=== PATIENT | female | born 1995 | race Hispanic/Latino ===

== ENCOUNTER → 2021-06-08 13:12 | Outpatient (CLI) | payer OTHER, SELFPAY ==
--- NOTE | 2021-06-08 13:15 | DI.US.S_ITS ---
PROCEDURE: US OB >= 14 WEEKS FETUS INDICATIONS: 20 WEEK ANATOMY SCAN. OUTSIDE/PRIOR DATING DATA: Last menstrual period (LMP): 01/19/2021. LMP-based estimated date of delivery (MARISA): 10/26/2021 . First dating scan (date and location): 06/08/2021 . Estimated date of delivery (MARISA) from first dating scan: 10/29/2021 . TECHNIQUE: Real-time scanning was performed of the fetus, with image documentation and biometric measurements. Endovaginal scanning: No COMPARISON: None. FINDINGS: General: A single living intrauterine gestation is present. Presentation: Variable. Placenta: Placental position is anterior , without previa. Amniotic fluid index: 8.8 cm, normal range is 5-24 cm. heart rate: 162 beats per minute. Maternal cervical canal: 4.7 cm long. Normal lower limit is 2.5 cm. biometrics: Biparietal diameter: 19 weeks 2 days Head circumference: 19 weeks 3 days Abdominal circumference: 20 weeks 3 days Femur length: 19 weeks 1 day Estimated gestational age from initial scan: not applicable. Composite gestational age from present scan: 19 weeks 4 days Estimated weight and percentile: 315 g; 35th percentile Measurement variability for biometric dating: +/- 7 days from 14 weeks to 15 weeks 6 days gestation, +/- 10 days from 16 weeks to 21 weeks 6 days gestation, +/- 2 weeks from 22 weeks to 27 weeks 6 days gestation, +/- 3 weeks for 28 weeks gestation or later. weight reference: 4500 g or EFW >90/95% is considered macrosomia or large for gestational age. EFW <10% is small for gestational age. EFW 5% or less is considered intra-uterine growth restriction. Anatomic survey: Neuro: Ventricles are non-dilated at less than 10 mm. Cisterna magna is normal at 3-11 mm. Cerebellum is normal in size and morphology. Nuchal skin fold: Normal at less than 6 mm between 14-21 weeks gestational age. Face: Nose and lips, facial profile are normal. Spine: No evidence for spina bifida. Heart: 4-chambered heart is present, with normal ventricular outflow tracts. Diaphragm: Diaphragm is intact. Stomach: Left-sided stomach is present. Kidneys: No hydronephrosis. Normal is less than 5 mm in 2nd trimester, less than 7 mm in 3rd trimester. Cord: 3-vessel cord has orthotopic insertion. Bladder: Normal in size. Extremities: All 4 extremities identified. IMPRESSION: 1. 19 week 4 day single living IUP corresponding to ultrasound MARISA of 10/29/2021. 2. Normal anatomic survey. Dictated by: Brett Bear RR Interpreted: Akbar Whiting MD on 06/08/2021 at 15:02 Transcribed by: ALLISON on 06/08/2021 at 15:04 Approved by: Akbar Whiting M.D. on 06/08/2021 at 17:22
== END ==
PROVIDERS: Referring Provider Family Medicine; Visit Provider Family Medicine
DX: Z34.82 Encounter for supervision of other normal pregnancy, second trimester (principal)
CPT/HCPCS: 76811

== ENCOUNTER → 2021-06-29 17:29 | Outpatient (CLI) | payer OTHER, SELFPAY ==
[2021-06-29 17:44] LABS: Appearance Urine UA CLEAR; Bilirubin Urine UA NEGATIVE (NEGATIVE); Color Urine UA YELLOW; Glucose Urine UA TRACE g/dL (Negative); Ketones Urine UA NEGATIVE (NEGATIVE); Leukocyte Esterase Urine UA TRACE (NEGATIVE); Nitrite Urine UA NEGATIVE (Negative); Occult Blood Urine UA TRACE-LYSED (Negative); Protein Urine UA NEGATIVE (Negative); Urobilinogen Urine UA 0.2 E.U./dL (0.2)
[2021-06-29 17:47] LABS: pH Urine UA 6.5 (4.5-8.0)
[2021-06-29 17:58] LABS: Bacteria Urine Occasional (0-1); Culture Indicated Urine Specimen Cultured; RBC Urine 1-5/HPF (0-5/HPF); Squamous Epithelial Cell Urine 0-1 /HPF (0-5/HPF); WBC Urine 1-5/HPF (0-5/HPF)
== END ==
PROVIDERS: Referring Provider Family Medicine; Visit Provider Family Medicine
DX: R30.0 Dysuria (principal)
CPT/HCPCS: 81001; 87086

== ENCOUNTER → 2021-07-31 10:57 | Outpatient (CLI) | payer OTHER, SELFPAY ==
[2021-07-31 12:50] LABS: GTT (PREG) 1 Hour PP 50gm Dose 99 mg/dL (76-139)
== END ==
PROVIDERS: Referring Provider Family Medicine; Visit Provider Family Medicine
DX: Z34.90 Encounter for supervision of normal pregnancy, unspecified, unspecified trimester (principal)
CPT/HCPCS: 36415; 82950

== ENCOUNTER → 2021-09-12 16:27 | Outpatient (CLI) | payer OTHER, SELFPAY ==
[2021-09-12 17:42] LABS: Add Manual Diff / Slide Review NO; Basophils Absolute Auto 100 /uL (0-100); Basophils Percent Auto 0.4 % (0-2); Eosinophils Absolute Auto 200 /uL (0-450); Eosinophils Percent Auto 1.4 % (2-4); Hematocrit 34.5 % (36-46); Hemoglobin 11.6 g/dL (12.0-16.0); Lymphocytes Absolute Auto 2000 /uL (1100-4500); Lymphocytes Percent Auto 15.8 % (25-40); Mean Corpuscular HGB Conc 33.5 % (30-36); Mean Corpuscular Hemoglobin 29.2 PG (26-34); Mean Corpuscular Volume 87.1 fL (80-100); Monocytes Absolute Auto 800 /uL (0-900); Monocytes Percent Auto 6.3 % (3-14); Neutrophils Absolute Auto 9800 /uL (1500-7000); Neutrophils Percent Auto 76.1 % (50-75); Platelet Count 309 X10^3/uL (150-400); Red Blood Cell Count 3.96 X10^6/uL (4.0-5.2); White Blood Cell Count 12.8 X10^3/uL (4.5-11.0)
== END ==
PROVIDERS: Referring Provider Family Medicine; Visit Provider Family Medicine
DX: Z34.83 Encounter for supervision of other normal pregnancy, third trimester (principal); Z3A.33 33 weeks gestation of pregnancy
CPT/HCPCS: 36415; 85025

== ENCOUNTER → 2021-09-20 11:21 | Outpatient (CLI) | payer OTHER, SELFPAY ==
[2021-09-20 13:35] LABS: COVID19 -Nasal RAPID POSITIVE (Negative)
== END ==
PROVIDERS: Referring Provider Nurse Practitioner Family; Visit Provider Nurse Practitioner Family
DX: U07.1 COVID-19 (principal); Z20.822 Contact with and (suspected) exposure to COVID-19; R05.9 Cough, unspecified
CPT/HCPCS: 87635

== ENCOUNTER → 2021-09-25 13:55 | Outpatient (CLI) | payer OTHER, SELFPAY ==
[2021-09-25 14:44] LABS: Alanine Aminotransferase 75 IU/L (<35); Albumin 3.3 g/dL (3.5-5.0); Albumin Globulin Ratio 0.9 (1.0-2.8); Alkaline Phosphatase 181 U/L (38-126); Aspartate Aminotransferase 57 IU/L (14-36); Bilirubin Total 1.1 mg/dL (0.2-1.3); Bilirubin Unconjugated 0.7 mg/dL (0.0-1.1); Globulin 3.5 g/dL (1.7-4.1); HEMOLYSIS < 15 (0-50); Total Protein 6.8 g/dL (6.3-8.2)
[2021-09-26 08:13] LABS: Bile Acids 100.6 umol/L (0.0-10.0)
== END ==
PROVIDERS: Family Medicine; Referring Provider Family Medicine; Visit Provider Family Medicine
DX: L50.8 Other urticaria (principal); Z3A.30 30 weeks gestation of pregnancy
CPT/HCPCS: 36415; 80076; 82239

== ENCOUNTER → 2021-09-26 15:04 | Outpatient (CLI) | payer OTHER, SELFPAY ==
[2021-09-26 16:00] LABS: COVID19 -Nasal RAPID POSITIVE (Negative)
[2021-09-27 13:01] LABS: Strep Grp B PCR POS for Grp B Strep
== END ==
PROVIDERS: Referring Provider Family Medicine; Visit Provider Family Medicine
DX: O98.513 Other viral diseases complicating pregnancy, third trimester (principal); U07.1 COVID-19; Z3A.35 35 weeks gestation of pregnancy
CPT/HCPCS: 87635; 87653

== ENCOUNTER 2021-09-26 15:19 | Observation (INO) | payer OTHER, SELFPAY ==
[2021-09-26] MEDS: BETAMETHASONE 30 MG/5 ML MDV 12 MG IM (15:43)
== END 2021-09-26 15:50 | disposition home or self-care (01) ==
PROVIDERS: Admitting Provider Family Medicine; Referring Provider Family Medicine; Visit Provider Family Medicine
DX: O26.893 Other specified pregnancy related conditions, third trimester (principal); R74.02 Elevation of levels of lactic acid dehydrogenase [LDH]; Z3A.35 35 weeks gestation of pregnancy
CPT/HCPCS: 96372; G0378; G0379; J0702

== ENCOUNTER 2021-09-26 19:02 | Inpatient (IN) | payer OTHER, SELFPAY ==
[2021-09-26 21:00] VITALS: BP 116/76
[2021-09-26 21:11] LABS: Add Manual Diff / Slide Review NO; Basophils Absolute Auto 0 /uL (0-100); Basophils Percent Auto 0.2 % (0-2); Eosinophils Absolute Auto 0 /uL (0-450); Hematocrit 35.1 % (36-46); Hemoglobin 11.9 g/dL (12.0-16.0); Lymphocytes Absolute Auto 900 /uL (1100-4500); Lymphocytes Percent Auto 7.7 % (25-40); Mean Corpuscular HGB Conc 33.8 % (30-36); Mean Corpuscular Hemoglobin 29.4 PG (26-34); Monocytes Absolute Auto 100 /uL (0-900); Monocytes Percent Auto 1.2 % (3-14); Neutrophils Absolute Auto 11100 /uL (1500-7000); Neutrophils Percent Auto 90.9 % (50-75); Platelet Count 306 X10^3/uL (150-400); Red Blood Cell Count 4.03 X10^6/uL (4.0-5.2); Red Cell Distribution Width 12.9 % (11.6-14.8); White Blood Cell Count 12.2 X10^3/uL (4.5-11.0)
[2021-09-26] MEDS: miSOPROStoL 25 MCG TABLET 50 MCG PO (21:37)
[2021-09-27] MEDS: miSOPROStoL 25 MCG TABLET 50 MCG PO (03:59)
--- NOTE | 2021-09-27 08:36 | DI.US.S_ITS ---
PROCEDURE: US OB LIMITED INDICATIONS: growth, IOL for cholestasis OUTSIDE/PRIOR DATING DATA: Last menstrual period (LMP): 01/19/21. LMP-based estimated date of delivery (MARISA): 10/26/21. First dating scan (date and location): 06/08/21. Estimated date of delivery (MARISA) from first dating scan: 10/29/21. The calculations are made using the ultrasound MARISA of 10/29/21. TECHNIQUE: Real-time scanning was performed of the fetus, with image documentation. Endovaginal scanning: Not performed COMPARISON: None. FINDINGS: A single living intrauterine gestation is present. Presentation: Vertex. Placenta: Placental position is anterior, without previa. Amniotic fluid index: 17.4 cm, normal range is 5-24 cm. Single deepest vertical pocket is 6.0 cm. heart rate: 137 beats per minute. Maternal cervical canal: Not seen Estimated gestational age by initial ultrasound 35 weeks three days Biparietal diameter 8.6 cm, 34 weeks, four days Head circumference 31.4 cm, 35 weeks, two days Abdominal circumference 32.1 cm, 36 weeks, 0 days Femur length 7.0 cm, 36 weeks, one day Composite gestational age 35 weeks, four days Estimated weight 2773 g, 60th percentile IMPRESSION: 1. Single living intrauterine . 2. Appropriate growth compared to the prior study. 3. Normal amniotic fluid volume. Dictated by: Li Campa M.D. on 09/27/2021 at 10:59 Approved by: Li Campa M.D. on 09/27/2021 at 11:04
--- NOTE | 2021-09-27 10:51 | P.HPOB_ITS ---
OB HPI Date/Time Date of admission: 09/27/21 Date Patient Seen: 09/27/21 Time Patient Seen: 07:30 History of Present Condition Chief complaint: observation of labor MARISA Calculator Estimated Delivery Date Method Current WG Current Estimate 10/26/21 Manual 35w 6d Final MARISA - BENJAMIN Other Estimates 10/26/21 LMP (Certain) 35w 6d 10/26/21 Ultrasound #1 35w 6d 10/24/21 Ultrasound #2 36w 1d Estimated Gestational Age (weeks): 35w6d : 2 Para: 1 Narrative: Pt is a 26yo at 35w6d here for IOL for cholestasis of . She is feeling her baby move regularly. No LOF, vaginal bleeding, or contractions prior to presentation. Her was uncomplicated until the past week. She was diagnosed with COVID on 09/20, with cold-like symptoms. Her symptoms have since resolved. The pt then developed itching on her abdomen and feet. CMP and bile acids were drawn, and she was shown to have slightly elevated liver enzymes and bile acids of 100.6. The case was discussed with MFM yesterday, and they recommended delivery no later than 36 weeks. care: good care, initiated at week # (10) and pounds weight gain (32) Dating criteria OB: LMP confirmed by 1st trimester US Ultrasounds: normal 1st trimester US and normal mid trimester US Obstetrical complications: other (cholestasis ) Medical complications OB: none Indications Indication for induction OB: other (cholestasis of ) Preadmission Labs Last OB Lab Results: Blood Type O Positive 09/26/21 21:08 09/26/21 Antibody Screen Negative 09/26/21 21:08 09/26/21 Hematocrit 35.1 % (36-46) L 09/26/21 21:08 09/26/21 Hemoglobin 11.9 g/dL (12.0-16.0) L 09/26/21 21:08 09/26/21 Glucose 1 Hour 99 mg/dL (76-139) 07/31/21 12:17 07/31/21 Group B Streptococcus (PCR) Pos for grp b strep H 09/26/21 15:36 09/26/21 -: Urine: negative External Labs -: HBsAG: negative, HIV: negative, RPR/VDLR: negative, Chlamydia screen: negative, Gonorrhea screen: negative, GBS status: positive and Urine: negative -: Rubella: immune and Varicella: immune Prior (ies) Past Pregnancies Del. Date GA/Weeks Labor Lgth Wt Sex Route Outcome Anesthesia Place Delv Breastfeed Preg Comp Name 03/09/17 40.4 16 7 lb 8 oz Male vaginal live - full ter m epidural [place], [place] BF 18 mos; latch issues none Robert Delivery Date: 03/09/17 Last Updated by: Yahaira Modi R.N. Intact perineum, no complications. Evaluation Evaluation Baseline heart rate: 140 Variability: Moderate (11-25) monitor accelerations: Present Monitor Decelerations: Absent Contraction Frequency (minutes): 3 Status: Category l Dilation (cm): 2.5 Effacement (%): 80 Dilation: 1-2 cm Effacement: >/=80% station: -1 Position of cervix: mid Consistency: soft Alanis score: 9 PFSH Medical History (Updated 09/26/21 @ 21:57 by Suyapa Kan MD) Anxiety (~2009) Healthy female adult Family History (Updated 05/18/21 @ 10:35 by Yahaira Modi RN) Mother No problems noted. Father Anxiety Grandmother Diabetes mellitus Grandfather Myocardial infarction Grandmother Diabetes mellitus Grandfather No problems noted. Brother Anxiety Testicular cancer Sister Anxiety Social History marital status: number of children: 1 household members: spouse and children lives independently: Yes caregiver/support person: No housing: condominium pets and animals: No education level: college (Some college: pursuing criminal justice/psychologist) occupational status: unemployed current occupational exposures/hazards: No special bekah needs: No seatbelt use: always do you feel safe at home: Yes in current or past relationships, have you been: threatened Smoking Status: Never smoker second hand exposure: No alcohol intake: former (Pre-: Rarely, once every few months. ) substance use type: does not use during the past year weight has: remained stable well-balanced diet: about half the time (Meat has been making her nauseated, hard to get enough protein. ) daily servings fruits/ve or more times/day caffeine: Yes (None first trimester, now just occasionally. Aware of 200mg limit. ) Type(s) of exercise: walking frequency: 3-4 times per week duration: 30-45 minutes/day Meds Home Medications and Allergies Home Medications Medication Instructions Recorded Confirmed Type prenat.vits,deborah,[id number] 1 tab PO DAILY 05/18/21 09/26/21 History metronidazole 500 mg tablet 500 mg PO BID #14 tab 07/03/21 09/26/21 Rx Allergies Allergy/AdvReac Type Severity Reaction Status Date / Time No Known Drug Allergies Allergy Verified 12/09/18 16:17 OB Exam Narrative Exam Narrative: Gen: NAD, sitting comfortably in bed, appears well CV: RRR, no murmurs Resp: clear to auscultation bilaterally Abd: soft, nontender, gravid Ext: no edema Skin: no rash Objective Labs Result Diagrams: 09/26/21 21:08 Labs: Laboratory Results - last 24 hr 09/26/21 09/26/21 21:08 21:08 WBC 12.2 H RBC 4.03 Hgb 11.9 L Hct 35.1 L MCV 87.0 MCH 29.4 MCHC 33.8 RDW 12.9 Plt Count 306 Neut % (Auto) 90.9 H Lymph % (Auto) 7.7 L [place] % (Auto) 1.2 L Eos % (Auto) 0.0 L Baso % (Auto) 0.2 Neut # (Auto) 90305 H Lymph # (Auto) 900 L [place] # (Auto) 100 Eos # (Auto) 0 Baso # (Auto) 0 Blood Type O Positive Antibody Screen Negative Assessment and Plan Assessment and Plan Assessment and Plan narrative: 26yo at 35w6d here for IOL due to cholestasis or . Bile acids > 100 with elevated liver enzymes. After discussion with MFM, recommendation to induce no later than 36 weeks. Received dose of Betamethasone yesterday, will repeat today due to late status. otherwise uncomplicated. She did test positive for COVID on 09/20, and remained positive yesterday. Rh positive, GBS positive. Received 2 doses of cytotec overnight, now with mild intermittent contractions. Alanis score currently 9. - Expectant management, anticipate - GBS positive, penicillin for GBS prophylaxis initiated - Start pitocin when able, titrate as tolerated. IOL currently on hold due to issues with the equipment sterilization. - Continuous monitoring due to cholestasis - Epidural for pain control when desired - Plan on AROM once GBS prophylaxis adequate - Airborne precautions with patient care
[2021-09-27] MEDS: PENICILLIN G POTASSIUM 5,000,000 UNIT in DEXTROSE 5% IN WATER 250 ML IV (11:07)
[2021-09-27] MEDS: OXYTOCIN PREMIX 30 UNIT/500 ML PLAST..BAG IV (13:29)
[2021-09-27] MEDS: BETAMETHASONE 30 MG/5 ML MDV 12 MG IM (15:16)
[2021-09-27] MEDS: PENICILLIN G POTASSIUM 3,000,000 UNIT/50 ML FROZ.PIGGY 100 UNIT IV ×2 (16:13→20:07)
--- NOTE | 2021-09-27 19:06 | PM.AN.REGBLK ---
Regional Block Pre-procedure Procedure: Continuous Lumbar Epidural for L&D Attending OB provider: Suyapa Kan PMH/ROS narrative: Induction for cholestasis of at 35WGA. (+) COVID - congestion and cough, 10 days from symptom onset, 8 days from (+) test. Hx: No personal or family history of anesthesia problems. PSH/Anesthesia history narrative: previous epidural without issue Exam narrative: RRR CTAB ASA Class: III Labs: Hct 35.1 % (36-46) L 09/26/21 21:08 Plt Count 306 X10^3/uL (150-400) 09/26/21 21:08 Medications: Current Medications Generic Name Dose Route Start Last Admin Trade Name Freq PRN Reason Stop Dose Admin Calcium Carbonate 1,000 mg 09/26/21 19:18 Calcium Carbonate 500 Mg Tab PO Q2HR PRN Dyspepsia Carboprost Tromethamine 250 mcg 09/26/21 19:18 Carboprost 250 Mcg/Ml Ampul IM Q90M PRN Bleeding Fentanyl 50 mcg 09/26/21 19:18 Fentanyl 100 Mcg/2 Ml Inj IV Q1H PRN Pain, Moderate (4-6) Tranexamic Acid 1,000 mg/ 100 mls @ 200 mls/hr 09/26/21 19:18 Sodium Chloride IV NOW PRN Bleeding Penicillin G Potassium 3,000,000 unit in 50 mls @ 100 mls/hr 09/26/21 23:30 09/27/21 16:13 Penicillin G Potassium IV 100 mls/hr Q4H PEDRO Administration Lactated Ringer's 1,000 mls @ 100 mls/hr 09/26/21 19:30 Lactated Ringers IV CONT PEDRO Oxytocin/Lactated Ringer's 30 unit in 500 mls @ 200 mls/hr 09/26/21 19:18 Oxytocin Premix IV CONT PRN Bleeding Protocol Oxytocin/Lactated Ringer's 30 unit in 500 mls @ 3 mls/hr 09/26/21 19:30 09/27/21 13:29 Oxytocin Premix IV 3 milliunit/min TITRATE PEDRO 3 mls/hr Administration Protocol 3 MILLIUNIT/MIN Methylergonovine Maleate 0.2 mg 09/26/21 19:18 Methylergonovine 0.2 Mg/Ml Vial IM NOW PRN Bleeding Methylergonovine Maleate 0.2 mg 09/26/21 19:18 Methylergonovine 0.2 Mg Tablet PO Q6HR PRN Heavy Bleeding Misoprostol 1,000 mcg 09/26/21 19:18 Misoprostol 200 Mcg Tablet RI NOW PRN Bleeding Misoprostol 400 mcg 09/26/21 19:18 Misoprostol 200 Mcg Tablet SL NOW PRN Bleeding Misoprostol 800 mcg 09/26/21 19:18 Misoprostol 200 Mcg Tablet RI NOW PRN Bleeding Misoprostol 50 mcg 09/26/21 21:00 09/27/21 03:59 Misoprostol 25 Mcg Tablet PO 50 mcg QID PEDRO Administration Naloxone HCl 0.2 mg 09/26/21 19:18 Naloxone 0.4 Mg/Ml Vial IV Q2MIN PRN Opiate Reversal Ondansetron HCl 4 mg 09/26/21 19:18 Ondansetron 4 Mg/2 Ml Inj IV Q4HR PRN Nausea And Vomiting Oxytocin 10 unit 09/26/21 19:18 Oxytocin 10 Unit/Ml Vial IM NOW PRN Bleeding Allergies: Allergies Allergy/AdvReac Type Severity Reaction Status Date / Time No Known Drug Allergies Allergy Verified 12/09/18 16:17 Procedure Insertion date: 09/27/21 Insertion time: 18:50 Prep/Local: betadine x3 (chloroprep) and 1% lidocaine Interspace: L3-4 Patient position: sitting Needle: 18 gauge Monicatead (with 27G pencil point needle-through needle for IT dose) Loss of resistance with: saline (with air bubble) Catheter placed at SKIN (cm): 12 Insertion: Yes CSF, No Blood, No Paresthesia with insertion, No Paresthesia with injection and No Test dose reaction Initial Medications TEST DOSE time: 18:50 TEST DOSE: 1.5% lidocaine with epinephrine 1:200k (mL): 5 (3mL initial test dose, 2mL as part of first bolus) BOLUS DOSE time: 18:51 BOLUS DOSE (mL): 2 BOLUS DOSE med: other (10mcg fentanyl intrathecally, 90mcg fentanyl via epidural catheter) Infusion INFUSION: 0.0625% bupivacaine and with fentanyl 2 mcg/mL Initial rate (mL/hr): 12 (with bolus of 5mL Q15min lockout) Post-procedure Anesthesia time START: 18:24 Anesthesia time END: 20:54 Post-procedure Anesthesia Assessment: No Anesthesia complications
--- NOTE | 2021-09-27 21:22 | P.PCNOB_ITS ---
Events: Other (cholestasis of ) Labor & Delivery Delivery date: 09/27/21 Intrapartal Events: None Cervical ripening method: per misoprostal protocol Induction method: per pitocin protocol Delivery augmentation: rupture of membranes Delivery monitor: external FHT Route of delivery: Episiotomy description: None L&D Laceration Description: Perineal - 1st Degree Delivery repair: chromic (3-O) Estimated blood loss (mL): 100 Anesthesia Type: Epidural Complications: None Narrative: PROCEDURE: at 35w6d presented for IOL due to cholestasis of and was admitted to Labor and Delivery. The pt was betamethasone complete at []. She received cytotec x2 for induction, and was then started on pitocin. The patient progressed through the 1st stage over 8 hours. Pain was controlled with an epidural. The pt had SROM with clear fluid present. The patient progressed through the 2nd stage over 7 minutes and delivered a viable female with APGARs 8/9 at 20:54 via without complications. Nuchal cord x 1 was reduced after delivery. The baby cried spontaneously immediately after delivery. The cord was clamped and cut after 5 minutes. The perineum and vagina were inspected with 1st degree laceration repaired with 3-O Chromic. PREPROCEDURE DIAGNOSIS: Intrauterine at 35w6d Cholestasis of GBS positive RH positive POSTPROCEDURE DIAGNOSIS: Intrauterine at 35w6d, delivered Same as preprocedure [place] Baby 1: Infant gender: Female Presentation: vertex Position: Right Occiput Anterior Placenta delivery description: Spontaneous Cord Vessel Description: 3 Vessels and Nuchal Cord (x1) score (1 min): 8 score (5 min): 9 weight: 5 lb 12.629 oz Plan for aftercare: Routine care
[2021-09-27] MEDS: ACETAMINOPHEN 325 MG TABLET 650 MG PO (23:33)
[2021-09-27] MEDS: IBUPROFEN 600 MG TABLET PO (23:33)
[2021-09-27] MEDS: LANOLIN OINT 7 GM 1 APPLIC TOP (23:34)
[2021-09-28] MEDS: ACETAMINOPHEN 325 MG TABLET 650 MG PO (06:55)
[2021-09-28] MEDS: IBUPROFEN 600 MG TABLET PO (06:55)
[2021-09-28 10:19] LABS: Alanine Aminotransferase 222 IU/L (<35); Albumin 3.1 g/dL (3.5-5.0); Albumin Globulin Ratio 0.9 (1.0-2.8); Alkaline Phosphatase 154 U/L (38-126); Aspartate Aminotransferase 151 IU/L (14-36); BUN Creatinine Ratio 12.7 (6-22); Blood Urea Nitrogen 7 mg/dL (7-17); Carbon Dioxide 24 mmol/L (22-32); Chloride 105 mmol/L (98-107); Estimated Glomerular Filt Rate > 60.0 mL/min (>60); Globulin 3.3 g/dL (1.7-4.1); Glucose 129 mg/dL (70-100); HEMOLYSIS < 15 (0-50); Potassium 3.8 mmol/L (3.4-5.1); Sodium 135 mmol/L (137-145); Total Protein 6.4 g/dL (6.3-8.2)
--- NOTE | 2021-09-28 10:37 | PM.OBPN.1 ---
Subjective - OB Subjective Interval history: Pt reports feeling well. She is with good latch, but does have some nipple discomfort. Her pain is well controlled, with only mild cramping. Her lochia is decreasing appropriately. She has passed flatus. Exam Narrative Exam Narrative: Gen: NAD, sitting comfortably in bed, appears well CV: RRR, no murmurs Resp: clear to auscultation bilaterally Abd: soft, appropriately tender, fundus firm and below the umbilicus, nondistended Ext: no edema Objective Labs Result Diagrams: 09/26/21 21:08 09/28/21 09:40 Labs: Laboratory Results - last 24 hr 09/28/21 09:40 Sodium 135 L Potassium 3.8 Chloride 105 Carbon Dioxide 24 BUN 7 Creatinine 0.55 Estimated GFR > 60.0 BUN/Creatinine Ratio 12.7 Glucose 129 H Calcium 9.0 Total Bilirubin 1.0 AST 151 H ALT 222 H Alkaline Phosphatase 154 H Total Protein 6.4 Albumin 3.1 L Globulin 3.3 Albumin/Globulin Ratio 0.9 L Assessment & Plan Plan Comments: 26yo PPD #1 s/p without complications after IOL for cholestasis of . Pt recovering well. Liver enzymes are up from earlier in the week, will continue to trend. Pt is COVID positive. - Normal care - Trend liver enzymes - support - Airborne precautions Time Spent With Patient Time: Total time spent is greater than 50% in coordination of care (as documented) at patient's floor/unit and/or counseling patient: Time with patient: less than 15 minutes
[2021-09-29] MEDS: ACETAMINOPHEN 325 MG TABLET 650 MG PO (02:11)
[2021-09-29] MEDS: IBUPROFEN 600 MG TABLET PO ×2 (02:12→12:20)
[2021-09-29 07:08] LABS: Alanine Aminotransferase 351 IU/L (<35); Albumin 3.1 g/dL (3.5-5.0); Alkaline Phosphatase 135 U/L (38-126); Aspartate Aminotransferase 228 IU/L (14-36); BUN Creatinine Ratio 23.1 (6-22); Bilirubin Total 0.5 mg/dL (0.2-1.3); Blood Urea Nitrogen 12 mg/dL (7-17); Calcium 8.8 mg/dL (8.4-10.2); Carbon Dioxide 27 mmol/L (22-32); Chloride 105 mmol/L (98-107); Estimated Glomerular Filt Rate > 60.0 mL/min (>60); Globulin 3.1 g/dL (1.7-4.1); Glucose 86 mg/dL (70-100); HEMOLYSIS < 15 (0-50); Potassium 3.7 mmol/L (3.4-5.1); Sodium 135 mmol/L (137-145); Total Protein 6.2 g/dL (6.3-8.2)
[2021-09-29] MEDS: PRENATAL VIT,CALC/IRON/FOLIC 1 TABLET 1 TAB PO (09:59)
[2021-09-29] MEDS: DOCUSATE 100 MG CAPSULE PO (09:59)
--- NOTE | 2021-09-29 10:26 | P.DS_ITS ---
Discharge Providers Provider Date of admission: 09/26/21 19:02 Discharge Date: 09/29/21 Primary care physician: Doctor Tamra MD Consults: 09/28/21 21:23 Consult to Assistant Kitchen Manager Routine Comment: Discharge provider: Suyapa Kan MD Summary Hospital Course Date Patient Seen: 09/29/21 Time Patient Seen: 10:26 Diagnoses: Intrauterine at 35w6d Cholestasis of GBS positive RH positive Hospital Course: The patient presented for induction of labor due to cholestasis of . She received Cytotec for induction followed by Pitocin. She received adequate prophylaxis for GBS with penicillin. She had ask Trauma production of clear fluid. She progressed to complete and has had a spontaneous vaginal delivery of a viable baby girl on 09/27/2021. A first-degree perineal laceration was then repaired. There were no complications with delivery. , there also no complications. At the time of discharge she was voiding, ambulating, and passing flatus without difficulty. She was breast-feeding with good latch. Her pain was well controlled. Her lochia was decreasing appropriately. We did trend her liver enzymes showed elevation prior to delivery and they were noted to be going up slightly. We recommend no Tylenol at home and will continue to trend these with a repeat CMP next week. The patient her blood pressures remained normal, and she had no other evidence of HELLP on labs. She will follow-up in 6 weeks for her check. She is undecided regarding contraception. Peripartum Data Delivery Method: Natural Vaginal Laceration Description: Perineal - 1st Degree Episiotomy description: None Procedures: Spontaneous vaginal delivery complications: none 1: Gender: Female Disposition of : home Discharge Diagnosis (1) Cholestasis during in third trimester: Status: Acute (2) Spontaneous vaginal delivery: Status: Acute Status at Discharge Cognitive/behavioral status at discharge: oriented Functional status at discharge: independent ambulation Overall status at discharge: patient is progressing back to baseline Time Spent with Patient Time attestation: Total time spent providing and/or coordinating discharge services: Objective Labs Result Diagrams: 09/29/21 08:40 09/29/21 06:40 Labs: Laboratory Results - last 24 hr 09/29/21 06:40 Sodium 135 L Potassium 3.7 Chloride 105 Carbon Dioxide 27 BUN 12 Creatinine 0.52 Estimated GFR > 60.0 BUN/Creatinine Ratio 23.1 H Glucose 86 Calcium 8.8 Total Bilirubin 0.5 AST 228 H ALT 351 H Alkaline Phosphatase 135 H Total Protein 6.2 L Albumin 3.1 L Globulin 3.1 Albumin/Globulin Ratio 1.0 Exam Narrative Exam Narrative: Gen: NAD, sitting comfortably in bed, appears well CV: RRR, no murmurs Resp: clear to auscultation bilaterally Abd: soft, appropriately tender, fundus firm and below the umbilicus, nondistended Ext: no edema Discharge Plan Discharge Plan Patient Disposition: Home Discharge orders & Medications Prescriptions: New docusate sodium 100 mg Capsule 100 mg PO DAILY Qty: 30 0RF ibuprofen 600 mg Tablet 600 mg PO Q6HR PRN (Reason: Pain, Mild (1-3)) Qty: 30 0RF Continued prenat.vits,deborah,[id number] Tablet 1 tab PO DAILY 0RF Discontinued metronidazole 500 mg tablet 500 mg PO BID Qty: 14 0RF Follow up/Referrals: Doctor Barboza MD [Primary Care Provider] - Suyapa Kan MD [Physician] - 6 Weeks Diet/Activity/Treatments Diet: Diet as Tolerated and Regular Skin/Wound/Dressing Care Report to your healthcare provider any signs of infection, such as:: chills, fever, increased pain and unusual drainage Visit Report/Discharge Packet Instructions: DI for Labor and Delivery, Vaginal Visit Report Forms: Patient Portal/API, Stroke Signs & Symptoms Discharge Data Primary Care Provider: Doctor Tamra
[2021-09-29 11:16] LABS: Add Manual Diff / Slide Review NO; Basophils Absolute Auto 100 /uL (0-100); Basophils Percent Auto 0.7 % (0-2); Eosinophils Absolute Auto 0 /uL (0-450); Eosinophils Percent Auto 0.2 % (2-4); Hematocrit 28.9 % (36-46); Hemoglobin 9.5 g/dL (12.0-16.0); Lymphocytes Absolute Auto 2400 /uL (1100-4500); Mean Corpuscular HGB Conc 32.8 % (30-36); Mean Corpuscular Hemoglobin 29.1 PG (26-34); Mean Corpuscular Volume 88.9 fL (80-100); Monocytes Absolute Auto 900 /uL (0-900); Monocytes Percent Auto 7.9 % (3-14); Neutrophils Absolute Auto 7900 /uL (1500-7000); Neutrophils Percent Auto 70.2 % (50-75); Platelet Count 280 X10^3/uL (150-400); Red Blood Cell Count 3.25 X10^6/uL (4.0-5.2); Red Cell Distribution Width 13.5 % (11.6-14.8); White Blood Cell Count 11.3 X10^3/uL (4.5-11.0)
[2021-09-29] MEDS: DERMOPLAST SPRAY 20% 60 ML 1 SPRAY TOP (12:20)
[2021-09-29 16:15] VITALS: BP 105/62; PULSE 65; RESP 18; TEMP 36.6
== END 2021-09-29 17:00 | disposition home or self-care (01) | DRG 805 ==
PROVIDERS: Admitting Provider Family Medicine; Referring Provider Family Medicine; Visit Provider Family Medicine
DX: O26.62 Liver and biliary tract disorders in childbirth (principal); K83.1 Obstruction of bile duct; Z37.0 Single live birth; U07.1 COVID-19; O98.52 Other viral diseases complicating childbirth; O98.513 Other viral diseases complicating pregnancy, third trimester; Z3A.35 35 weeks gestation of pregnancy; O99.824 Streptococcus B carrier state complicating childbirth; O69.81X0 Labor and delivery complicated by cord around neck, without compression, not applicable or unspecified; O70.0 First degree perineal laceration during delivery
CPT/HCPCS: 01967; 36415; 59050; 59200; 59400; 76815; 80053; 85025; 86850; 86900; 86901; 87635; 87653; 96372; G0378; G0379; J0702; J2540; J2590; J3010

== ENCOUNTER → 2021-09-30 11:58 | Outpatient (CLI) | payer OTHER, SELFPAY ==
[2021-09-30 13:31] LABS: Alanine Aminotransferase 636 IU/L (<35); Albumin 3.4 g/dL (3.5-5.0); Alkaline Phosphatase 155 U/L (38-126); Aspartate Aminotransferase 371 IU/L (14-36); Bilirubin Total 0.8 mg/dL (0.2-1.3); Blood Urea Nitrogen 12 mg/dL (7-17); Calcium 9.4 mg/dL (8.4-10.2); Carbon Dioxide 28 mmol/L (22-32); Chloride 103 mmol/L (98-107); Estimated Glomerular Filt Rate > 60.0 mL/min (>60); Globulin 3.3 g/dL (1.7-4.1); Glucose 84 mg/dL (70-100); HEMOLYSIS < 15 (0-50); Potassium 4.3 mmol/L (3.4-5.1); Sodium 136 mmol/L (137-145); Total Protein 6.7 g/dL (6.3-8.2)
== END ==
PROVIDERS: Referring Provider Family Medicine; Visit Provider Family Medicine
DX: K83.1 Obstruction of bile duct (principal); O26.613 Liver and biliary tract disorders in pregnancy, third trimester
CPT/HCPCS: 36415; 80053

== ENCOUNTER → 2021-10-06 15:27 | Outpatient (CLI) | payer OTHER, SELFPAY ==
[2021-10-06 17:52] LABS: Alanine Aminotransferase 175 IU/L (<35); Alkaline Phosphatase 136 U/L (38-126); Aspartate Aminotransferase 34 IU/L (14-36); Bilirubin Total 0.6 mg/dL (0.2-1.3); Bilirubin Unconjugated 0.4 mg/dL (0.0-1.1); Globulin 3.9 g/dL (1.7-4.1); HEMOLYSIS < 15 (0-50); Total Protein 7.9 g/dL (6.3-8.2)
[2021-10-07 06:36] LABS: HBsAg Screen Negative (Negative); Hepatitis A Antibody IgM Negative (Negative); Hepatitis B Core Antibody IgM Negative (Negative); Hepatitis C Antibody <0.1 s/co ratio (0.0-0.9)
== END ==
PROVIDERS: Referring Provider Family Medicine; Visit Provider Family Medicine
DX: R79.89 Other specified abnormal findings of blood chemistry (principal)
CPT/HCPCS: 36415; 80074; 80076

== ENCOUNTER → 2021-10-19 09:47 | Outpatient (CLI) | payer OTHER, SELFPAY ==
[2021-10-19 10:46] LABS: Alanine Aminotransferase 21 IU/L (<35); Albumin 4.1 g/dL (3.5-5.0); Albumin Globulin Ratio 1.1 (1.0-2.8); Alkaline Phosphatase 104 U/L (38-126); Aspartate Aminotransferase 27 IU/L (14-36); Bilirubin Total 0.7 mg/dL (0.2-1.3); Bilirubin Unconjugated 0.7 mg/dL (0.0-1.1); Globulin 3.6 g/dL (1.7-4.1); HEMOLYSIS < 15 (0-50); Total Protein 7.7 g/dL (6.3-8.2)
== END ==
PROVIDERS: Referring Provider Family Medicine; Visit Provider Family Medicine
DX: R79.89 Other specified abnormal findings of blood chemistry (principal)
CPT/HCPCS: 36415; 80076

== ENCOUNTER → 2023-01-21 11:26 | Outpatient (CLI) | payer OTHER, SELFPAY ==
[2023-01-21 11:57] LABS: Add Manual Diff / Slide Review NO; Basophils Absolute Auto 100 /uL (0-100); Basophils Percent Auto 1.4 % (0-2); Eosinophils Absolute Auto 300 /uL (0-450); Eosinophils Percent Auto 5.7 % (2-4); Hematocrit 42.3 % (36-46); Hemoglobin 14.2 g/dL (12.0-16.0); Lymphocytes Absolute Auto 2200 /uL (1100-4500); Lymphocytes Percent Auto 37.7 % (25-40); Mean Corpuscular HGB Conc 33.6 % (30-36); Mean Corpuscular Hemoglobin 30.3 PG (26-34); Mean Corpuscular Volume 90.2 fL (80-100); Monocytes Absolute Auto 300 /uL (0-900); Monocytes Percent Auto 5.8 % (3-14); Neutrophils Absolute Auto 2900 /uL (1500-7000); Neutrophils Percent Auto 49.4 % (50-75); Platelet Count 228 X10^3/uL (150-400); Red Blood Cell Count 4.69 X10^6/uL (4.0-5.2); Red Cell Distribution Width 12.8 % (11.6-14.8); White Blood Cell Count 5.8 X10^3/uL (4.5-11.0)
[2023-01-21 12:15] LABS: HEMOLYSIS < 15 (0-50); Iron 143 ug/dL (37-170)
[2023-01-21 12:26] LABS: Percent Iron Saturation 44 % (15-50); Total Iron Binding Capacity 322 ug/dL (265-497); Transferrin 232 mg/dL (206-381)
[2023-01-21 12:45] LABS: TSH w/ Reflex to FT4 1.75 uIU/mL (0.47-4.68)
== END ==
PROVIDERS: PCP Family Medicine; Referring Provider Family Medicine; Visit Provider Family Medicine
DX: R53.83 Other fatigue (principal)
CPT/HCPCS: 36415; 83540; 83550; 84443; 85025